=== PATIENT | male | born 1940 | race Caucasian/White ===

== ENCOUNTER → 2016-09-29 | Outpatient (CLI) | payer MEDICARE, BC | LOC: LAB 07:59 | PROVIDERS: ATTEND Family Medicine | DX: E78.4 Other hyperlipidemia (principal) | CPT/HCPCS: 36415; 80061 ==

== ENCOUNTER → 2016-10-10 | Outpatient (CLI) | payer MEDICARE, BC | LOC: RAD 10:11 | PROVIDERS: ATTEND Family Medicine | DX: R05 Cough (principal); R91.8 Other nonspecific abnormal finding of lung field | CPT/HCPCS: 71020 ==

== ENCOUNTER → 2016-10-10 | Outpatient (REF) | payer MEDICARE, BC ==
[2016-10-10 12:59] LABS: MEAN CORPUSCULAR HEMOGLOBIN 29.5 PG (26.0-34.0); MEAN CORPUSCULAR HGB CONC 33.2 g/dL (31.0-37.0); MEAN CORPUSCULAR VOLUME 89 FL (80-100); MEAN PLATELET VOLUME 9.4 FL (6.0-9.5); PLATELET COUNT 530 10^3uL (150-450); WHITE BLOOD COUNT 15.37 10^3uL (4.0-11.0)
[2016-10-10 13:05] LABS: BAND NEUTROPHILS % 0 % (0-6); EOSINOPHILS % 3 % (0-4); LYMPHOCYTES # 1.2 #; MONOCYTES # 0.6 #; MONOCYTES % 4 % (3-11); RBC MORPH NORMAL (NORMAL); SEGMENTED NEUTROPHILS % 85 % (51-67); TOTAL CELLS COUNTED 100
[2016-10-10 13:22] LABS: ALBUMIN 3.1 g/dL (3.4-5.0); ANION GAP 17.6 MEQ/L (3-15); CALCULATED IONIZED CALCIUM 3.8 mg/dL (3.8-4.6); TOTAL PROTEIN 6.8 g/dL (6.4-8.5)
[2016-10-10 13:49] LABS: ERYTHROCYTE SEDIMENTATION RT* 111 mm/hr (0-19)
[2016-10-10 21:22] LABS: P-ANCA 155 U/mL (0-99)
[2016-10-12 12:35] LABS: ANGIO-CONVERTING ENZYMEr 20 U/L (8 - 53)
== END ==
LOC: LAB 10:52
PROVIDERS: ATTEND Family Medicine
DX: R05 Cough (principal); R53.83 Other fatigue; R09.02 Hypoxemia
CPT/HCPCS: 80053; 82164; 83880; 84443; 85025; 85652; 86021; 86140

== ENCOUNTER → 2016-10-16 | Outpatient (CLI) | payer MEDICARE, BC | LOC: RAD 09:18 | PROVIDERS: ATTEND Family Medicine | DX: R09.02 Hypoxemia (principal); R60.1 Generalized edema; J44.9 Chronic obstructive pulmonary disease, unspecified; J90 Pleural effusion, not elsewhere classified | CPT/HCPCS: 71250; 93306 ==

== ENCOUNTER → 2016-10-19 | Outpatient (CLI) | payer MEDICARE, BC | LOC: RAD 07:39 | PROVIDERS: ATTEND Family Medicine | DX: D69.1 Qualitative platelet defects (principal); R79.89 Other specified abnormal findings of blood chemistry; R70.0 Elevated erythrocyte sedimentation rate; D72.829 Elevated white blood cell count, unspecified; D64.9 Anemia, unspecified; Z87.891 Personal history of nicotine dependence | CPT/HCPCS: 74178; Q9967 ==

== ENCOUNTER → 2016-11-08 | Outpatient (CLI) | payer MEDICARE, BC | LOC: LAB 14:41 | PROVIDERS: ATTEND Internal Medicine Sleep Medicine | DX: R05 Cough (principal) | CPT/HCPCS: 87116; 87206 ==

== ENCOUNTER → 2016-11-09 | Outpatient (CLI) | payer MEDICARE, BC | LOC: LAB 10:30 | PROVIDERS: ATTEND Internal Medicine Sleep Medicine | DX: R05 Cough (principal) | CPT/HCPCS: 87070; 87116; 87205 ==

== ENCOUNTER → 2016-11-10 | Outpatient (CLI) | payer MEDICARE, BC | LOC: LAB 11:08 | PROVIDERS: ATTEND Internal Medicine Sleep Medicine | DX: R05 Cough (principal) | CPT/HCPCS: 87070; 87116; 87205 ==